=== PATIENT | female | born 1970 | race Caucasian/White ===

== ENCOUNTER 2019-06-16 08:00 | Outpatient (CLI) | payer BC | END 2019-06-16 23:59 | disposition home or self-care (01) | LOC: LAB.R 08:00 | PROVIDERS: ATTEND Obstetrics & Gynecology | DX: R05 Cough (principal) | CPT/HCPCS: 81599 ==

== ENCOUNTER 2020-03-16 13:12 | Outpatient (CLI) | payer BC ==
[2020-03-16 13:47] LABS: ALBUMIN 4.6 g/dL (3.2-5.5); ALBUMIN/GLOBULIN RATIO 1.5 (1.0-2.2); BILIRUBIN,TOTAL 1.7 mg/dL (0.2-1.0); CALCIUM 9.4 mg/dL (8.5-10.3); CREATININE 0.9 mg/dL (0.4-1.0); TOTAL PROTEIN 7.6 g/dL (6.7-8.2)
[2020-03-16 14:00] LABS: CA 125 9.7 U/mL (0.0-35.0)
[2020-03-16 14:34] LABS: FOLLICLE STIMULATING HORMONE 37.43 mIU/mL
[2020-03-16 18:49] LABS: HEMOGLOBIN A1c% 5.9 % (4.27-6.07)
== END 2020-03-16 13:13 | disposition home or self-care (01) ==
LOC: LAB 13:12
PROVIDERS: ATTEND Advanced Practice Midwife
DX: Z01.84 Encounter for antibody response examination (principal); Z13.29 Encounter for screening for other suspected endocrine disorder
CPT/HCPCS: 36415; 80053; 82670; 83001; 83036; 86304; 86769

== ENCOUNTER 2021-03-12 00:22 | Emergency (ER) | payer OTHER, BC ==
--- NOTE | 2021-03-12 00:57 | ED Physician Documentation ---
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 The needle had already been used to inject lidocaine into the (other patient being treated). PD ED PE NORMAL - General General: Alert and oriented X 3, No acute distress PD MEDICAL DECISION MAKING - ED course Complexity details: d/w patient ED course: brief discussion regarding potential options for prophylaxis (specifically hepatitis B, HIV), which she declines. Exposure blood tests drawn (needlestick protocol) and will follow up with employee health Departure - Departure Disposition: 01 Home, Self Care Clinical Impression: Needlestick injury accident with exposure to body fluid Condition: Good Instructions: ED Body Fluid Exp HC Worker Comments: Follow up with employee health Discharge Date/Time: 03/12/21 00:59
[2021-03-13 09:47] LABS: HEPATITIS B SURFACE AB QN IMM 140 mIU/mL (> OR = 10); HEPATITIS C ANTIBODY NON-REACTIVE (NON-REACTIVE)
[2021-03-13 12:47] LABS: HIV AG/AB 4TH GEN NON-REACTIVE (NON-REACTIVE)
== END 2021-03-12 00:59 | disposition home or self-care (01) ==
LOC: ED 00:22
DX: Z77.21 Contact with and (suspected) exposure to potentially hazardous body fluids (principal); W46.1XXA Contact with contaminated hypodermic needle, initial encounter
CPT/HCPCS: 86317; 86703; 86803; 87389; 99281; 99283

== ENCOUNTER 2021-03-31 07:35 | Outpatient (CLI) | payer BC ==
--- NOTE | 2021-03-31 10:06 | Ultrasound Report ---
PROCEDURE: Abdomen Limited INDICATIONS: BACK PAIN, PELVIC PAIN TECHNIQUE: Real-time focused scanning was performed of the abdomen, with image documentation. COMPARISON: None. FINDINGS: The liver is normal in size, measuring up to 15.3 cm. The liver is markedly and diffusely increased i n echogenicity. The gallbladder appears normal without gallstones or gallbladder wall thickening. There is no pericho lecystic fluid. Sonographic Salgado sign is negative. No intrahepatic or extrahepatic biliary ductal dilatation. The common bile duct measures 3 mm in diam eter. The visualized portions of the pancreas are within normal limits. The right kidney measures 12.1 cm in length with cortical thickness of 1.8 cm. No hydronephrosis. No free fluid in the right upper quadrant. IMPRESSION: 1.Normal gallbladder. 2.Diffusely increased hepatic echogenicity is nonspecific, but most commonly encountered in the setti ng of hepatic steatosis. However, other causes of hepatocellular disease are not excluded. Recommend clinical correlation. Reviewed by: Hayden Gonzalez MD on 03/31/2021 10:04 AM [facility] Approved by: Hayden Gonzalez MD on 03/31/2021 10:04 AM [facility] Station ID: [id number]
--- NOTE | 2021-03-31 10:08 | Ultrasound Report ---
PROCEDURE: Pelvic w/Transvaginal INDICATIONS: BACK PAIN, PELVIC PAIN TECHNIQUE: Real-time scanning was performed of the pelvic organs, with image documentation. Additional endovagi nal scanning was necessary due to incomplete visualization of the adnexal and endometrial structures by transabdominal scanning. COMPARISON: None. FINDINGS: No pathologic free pelvic fluid. Uterus: Uterus is normal in size at 6.2 x 3.7 x 3.7 cm. The uterus is anteverted and the myometrium appears heterogeneous. The endometrium measures 2 mm in combined thickness. A right posterior intra mural fibroid measures 0.6 x 0.5 x 1.1 cm and contains a coarse calcification. An anterior midline in tramural fibroid measures 0.8 x 0.6 x 0.9 cm. A nabothian cyst is noted in the cervix. Ovaries: Right ovary measures 1.3 x 1.1 x 1.1 cm (0.9 cc). The left ovary is not visualized. IMPRESSION: 1.Fibroid uterus. 2.Left ovary is not visualized. Reviewed by: Hayden Gonzalez MD on 03/31/2021 10:07 AM PST Approved by: Hayden Gonzalez MD on 03/31/2021 10:07 AM PST Station ID: [id number]
== END 2021-03-31 07:36 | disposition home or self-care (01) ==
LOC: DI 07:35
PROVIDERS: ATTEND Nurse Practitioner Obstetrics & Gynecology
DX: D25.1 Intramural leiomyoma of uterus (principal); M54.89 Other dorsalgia; R10.2 Pelvic and perineal pain

== ENCOUNTER 2021-04-24 16:25 | Outpatient (CLI) | payer BC ==
[2021-04-24 17:04] LABS: HCT - HEMATOCRIT 43.3 % (37.0-47.0); HGB - HEMOGLOBIN 14.1 g/dL (12.0-16.0); MEAN CORPUSCULAR HEMOGLOBIN 29.4 pg (27.0-31.0); MEAN CORPUSCULAR HGB CONC 32.6 g/dL (32.0-36.0); MEAN CORPUSCULAR VOLUME 90.2 fL (81.0-99.0); MEAN PLATELET VOLUME 10.7 fL (7.9-10.8); RED BLOOD COUNT 4.8 10^6/uL (4.20-5.40); RED CELL DISTRIBUTION WIDTH 12.2 % (12.0-15.0)
[2021-04-24 17:24] LABS: PT - PROTHROMBIN TIME 11.4 secs (9.9-12.6)
[2021-04-24 17:34] LABS: ALBUMIN 4.4 g/dL (3.2-5.5); BILIRUBIN,DIRECT 0.2 mg/dL (0.1-0.5); BILIRUBIN,TOTAL 1.5 mg/dL (0.2-1.0); TOTAL PROTEIN 7.5 g/dL (6.7-8.2)
== END 2021-04-24 16:26 | disposition home or self-care (01) ==
LOC: LAB 16:25
PROVIDERS: ATTEND Nurse Practitioner Obstetrics & Gynecology
DX: K76.0 Fatty (change of) liver, not elsewhere classified (principal)
CPT/HCPCS: 36415; 80076; 81599; 82728; 82785; 83516; 83540; 84466; 85027; 85240; 85245; 85246; 85610; 85730; 86038; 86376

== ENCOUNTER 2022-11-15 20:05 | Emergency (ER) | payer BC ==
[2022-11-15] MEDS ORDERED: BUFFERED LIDOCAINE 10 ML SYRINGE SUBQ STA (20:08)
[2022-11-15 20:16] VITALS: BP 143/87; O2SAT 99
[2022-11-15] MEDS ORDERED: TETANUS/DIPHTHERIA/PERTUSSIS 0.5 ML SYRINGE IM ONE (20:17)
--- NOTE | 2022-11-15 20:19 | ED Physician Documentation ---
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 There is a deeper laceration on the dorsal radial side of the DIP of the middle finger without distal neurovascular compromise. e) - Neuro Neuro: Alert and oriented X 3, Normal speech Results - Vitals Vitals: Vital Signs - 24 hr 11/15/22 20:08 Temperature 36.5 C Heart Rate 64 Respiratory 16 Rate Blood Pressure 143/87 H O2 Saturation 99 Oxygen O2 Source Room air - Rads (name of study) Left middle finger x-ray is negative Relevant Findings:: Final report received, EMP independent interpretation of test Procedures - Laceration (location) Left middle finger Length in cm: 1 Wound type: Linear, Into subcut fat Neurovascular status: Sensory intact, Motor intact Tendon involvement: Tendon intact Anesthesia: Lidocaine 1%, With bicarb Wound preparation: Irrigated copiously NS Skin layer closure: Nylon, Interrupted, Size #-0 - enter number (5-0), Sutures - enter # (3) Other: Patient tolerated well, No complications, Neurovascular intact, Tetanus booster given Departure - Departure Disposition: 01 Home, Self Care Clinical Impression: Laceration of left middle finger Qualifiers: Encounter type: initial encounter Damage to nail status: without damage Foreign body presence: without foreign body Qualified Code(s): S61.213A - Laceration without foreign body of left middle finger without damage to nail, initial encounter Condition: Good Record reviewed to determine appropriate education?: Yes Instructions: ED Laceration Hand Comments: Note for your records that you received a Tdap shot today. Come back for any signs of infection which would include: Redness, swelling, drainage, increased pain, or fevers. You can wash it soap and water. Keep it covered and moist with bacitracin ointment which is available over the counter; avoid neosporin. Follow-up with your physician in about 14 days for suture removal. Discharge Date/Time: 11/15/22 21:00
--- NOTE | 2022-11-15 21:06 | XRAY Report ---
PROCEDURE: Finger(s) LT INDICATIONS: 3RD FINGER INJ TECHNIQUE: AP hand, 2 views of the third finger(s) acquired. COMPARISON: None. FINDINGS: Bones: No fractures or dislocations. No suspicious bony lesions. Soft tissues: No suspicious soft tissue calcifications or masses. IMPRESSION: No acute bony abnormality. Reviewed by: Stephen Goss MD on 11/15/2022 9:05 PM PDT Approved by: Stephen Goss MD on 11/15/2022 9:05 PM PDT Station ID: [id number]
== END 2022-11-15 21:00 | disposition home or self-care (01) ==
LOC: ED 20:05
DX: S61.211A Laceration without foreign body of left index finger without damage to nail, initial encounter (principal); W26.0XXA Contact with knife, initial encounter; Y93.G9 Activity, other involving cooking and grilling; Y92.009 Unspecified place in unspecified non-institutional (private) residence as the place of occurrence of the external cause; Z23 Encounter for immunization; Z71.85 Encounter for immunization safety counseling
CPT/HCPCS: 12001; 90471; 99283